=== PATIENT | female | born 1955 | race Caucasian/White ===

== ENCOUNTER 2017-05-24 09:18 | Emergency (ER) | payer BC ==
[2017-05-24 09:27] VITALS: BP 149/89
[2017-05-24] MEDS ORDERED: Gelfoam 12-7 ADSORBABL SPONGE* 1 EA SPONGE TOPICAL ONE (10:13)
[2017-05-24] MEDS ORDERED: Lidocaine 1% INJ* 10 MG/ML 30 ML SDV INJ ONE (10:22)
[2017-05-24] MEDS ORDERED: Lidocaine 2% PF * 5 ML VIAL INJ ONE (10:28)
--- NOTE | 2017-05-24 11:06 | UC ---
Selvin Dubon Angela, [facility] on 05/24/17 at 0935 . Laceration HPI - HPI Summary HPI Summary: In Room Note: This pt is a 61 y/o left-hand dominant female presenting to [facility] c/o a laceration on her right 5th finger s/p cut with a knife 2 days ago at around 8: 00 PM. She reports it started bleeding and wrapped it very tight to stop the bleeding. Pt notes it was ok for a couple of days with no bleeding. Today, pt notes she took off her wrap and her finger has not stopped bleeding since, she currently endorses pain. She denies any other injury, chest pain, SOB, fever. Pt is not anticoagulated. She reports her tetanus is UTD. MDs Note: Vital signs are stable, blood pressure is 149/89. Pt has no PMHx. Nurses Note: pt cut her rt 5th finger on a knif tuesday. pt states she wrapped it up and today it seems to not stop bleeding. pt denies use of anticoagulants. pt states her last tetnus was with in 5 years. - History Of Current Complaint Chief Complaint: UCLaceration Stated Complaint: HAND LACERATION Time Seen by Provider: 05/24/17 09:30 Hx Obtained From: Patient Laceration Location: Finger - right fifth finger Mechanism Of Injury: Sharp Trauma - with a knife - Allergies/Home Medications Allergies/Adverse Reactions: Allergies Allergy/AdvReac Type Severity Reaction Status Date / Time No Known Allergies Allergy Verified 05/24/17 09:27 Home Medications: Home Medications Phentermine HCl 37.5 mg PO 05/24/17 [History] PMH/Surg Hx/FS Hx/Imm Hx Previously Healthy: Yes Other Endocrine History: DENIES: Diabetes Other Cardiovascular History: DENIES: HTN Other History Of: Negative For: Anticoagulant Therapy - Surgical History Surgical History: None - Family History Known Family History: Negative: Cardiac Disease, Hypertension, Diabetes - Social History Occupation: Employed Full-time - Leadership education, executive coaching Alcohol Use: Weekly Substance Use Type: None Smoking Status (MU): Never Smoked Tobacco Review of Systems Constitutional: Negative Skin: Other - Laceration on right 5th finger Eyes: Negative ENT: Negative Respiratory: Negative Gastrointestinal: Negative Motor: Negative Neurovascular: Negative Musculoskeletal: Negative Neurological: Negative Psychological: Negative All Other Systems Reviewed And Are Negative: Yes Physical Exam Triage Information Reviewed: Yes Appearance: Well-Appearing, No Pain Distress, Well-Nourished Vital Signs: Initial Vital Signs Temp 97.5 F 05/24/17 09:24 Pulse 101 05/24/17 09:24 Resp 18 05/24/17 09:24 BP 149/89 05/24/17 09:24 Pulse Ox 100 05/24/17 09:24 Vital Signs Reviewed: Yes Eyes: Positive: Conjunctiva Clear ENT: Positive: Hearing grossly normal Neck: Positive: Supple, No Lymphadenopathy Respiratory: Positive: Chest non-tender, Lungs clear, Normal breath sounds, No respiratory distress Cardiovascular: Positive: RRR, No Murmur Musculoskeletal: Positive: Strength Intact Neurological: Positive: Alert Psychological: Positive: Age Appropriate Behavior Skin: Positive: Other - RUE: RIGHT 5TH FINGER SLIGHTLY MACERATED LACERATION ON THE VOLAR ASPECT OF THE DISTAL DIGIT. Negative: rashes Laceration Repair - Laceration Repair 1 Description: Linear - on right fifth finger Anesthesia Used: 2.0% Lido - without epinephrine, 3 CCs used to anesthetize successfully Irrigation With Pressure Irrigation Device: Yes Suture Of: Skin Suture Type: Nylon, Other - 250 surgicron loosely approximated the edges decreasing bleeding. Gel foam was then added and sawed on with the ends of one of the sutures. A pressure dressing was placed. The pt tolerated the procedure well. Laceration Course/Dx - Course/Dx Course Of Treatment: Medications have been included in the original chart and reviewed. Patient is Urgent/Emergent. BP elevated due to current condition w/o HTN in PMH. On exam, pt has a RIGHT 5TH FINGER SLIGHTLY MACERATED LACERATION ON THE VOLAR ASPECT OF THE DISTAL DIGIT. MDM: I explained to the patient the problem with a finger injury that is more than 8 to 12 hours old. I irrigated the wound out profusely and wrapped it down loosely to create some hemostasis. A laceration repair was performed and the pt tolerated the procedure well. Pt was told to restrict activities and call me in 2 days with any problems. At the beginning of the procedure, the wound was by 3 cm. At the end of the procedure the wound was by 1 cm, there was good hemostasis. - Differential Dx - Laceration/Wound Differental Diagnoses: Laceration, Other - continued bleeding. Provider Diagnoses: Right fifth finger distal laceration, continued bleeding after 48 hours. Loosely approximated and Gelfoam and pressure dressing to control bleeding. Patient re check in 48 hours. Will watch for signs of infection. Discharge - Discharge Plan Condition: Stable Disposition: HOME Patient Education Materials: Laceration (ED) Referrals: Alvina Merlos MD [Primary Care Provider] - Additional Instructions: Thank you for helping us improve patient care by filling out the [employer] Survey. WE DISCUSSED: Although your wound was 48 hours old, because of bleeding, it needed to be closed. I put in two sutures only and added some Gelfoam and a pressure dressing. If this bleeds, elevate it and put pressure on it for 10-15 minutes. Restrict activity, don't hit it, give it a chance to coagulate over the next 48 hours. Keep dressing on but watch for any signs of infection including increasing pain, redness, swelling, temperature. My suggestion is that you return here or see your doctor in two days to get the dressing removed and check on the wound. Go to ED if you have any problems before that. The documentation as recorded by the Selvin peng Angela accurately reflects the service I personally performed and the decisions made by me, Vimal Soares MD.
== END 2017-05-24 11:09 | disposition home or self-care (01) ==
LOC: UCEAST 09:18
DX: S61.216A Laceration without foreign body of right little finger without damage to nail, initial encounter (principal); W26.0XXA Contact with knife, initial encounter
CPT/HCPCS: 12001; 99211; A9270-GY; G0463; J2001

== ENCOUNTER 2017-05-26 07:03 | Emergency (ER) | payer BC ==
[2017-05-26 07:31] VITALS: BP 122/77
--- NOTE | 2017-05-26 10:37 | UC ---
Selvin Dubon Angela[facility] on 05/26/17 at 0715 . HPI Wound/Suture Re-check - HPI Summary HPI Summary: This pt is a 61 y/o left-hand dominant female presenting to [facility] for a wound recheck s/p laceration repair on May 24. Pt denies any complications, fever. In Room Note: This pt is a 61 y/o left-hand dominant female presenting to [facility] c/o a laceration on her right 5th finger s/p cut with a knife 2 days ago at around 8: 00 PM. She reports it started bleeding and wrapped it very tight to stop the bleeding. Pt notes it was ok for a couple of days with no bleeding. Today, pt notes she took off her wrap and her finger has not stopped bleeding since, she currently endorses pain. She denies any other injury, chest pain, SOB, fever. Pt is not anticoagulated. She reports her tetanus is UTD. MDs Note: Vital signs are stable, blood pressure is 122/77. Pt has no PMHx. Nurses Note: pt cut her rt 5th finger on a knif tuesday. pt states she wrapped it up and today it seems to not stop bleeding. pt denies use of anticoagulants. pt states her last tetnus was with in 5 years. - History Of Current Complaint Stated Complaint: WOUND RECHECK Time Seen by Provider: 05/26/17 07:07 Hx Obtained From: Patient Onset/Duration: Lasting Days Procedure Type: Laceration repair - Allergies/Home Medications Allergies/Adverse Reactions: Allergies Allergy/AdvReac Type Severity Reaction Status Date / Time No Known Allergies Allergy Verified 05/26/17 07:18 PMH/Surg Hx/FS Hx/Imm Hx Other Endocrine History: DENIES: Diabetes Other Cardiovascular History: DENIES: HTN Other History Of: Negative For: Anticoagulant Therapy - Surgical History Surgical History: None - Family History Known Family History: Negative: Cardiac Disease, Hypertension, Diabetes - Social History Alcohol Use: Weekly Substance Use Type: None Smoking Status (MU): Never Smoked Tobacco Review of Systems Constitutional: Negative Skin: Other - Sutures on the right fifth finger. Eyes: Negative ENT: Negative Respiratory: Negative Cardiovascular: Negative Gastrointestinal: Negative Motor: Negative Neurovascular: Negative Musculoskeletal: Negative Neurological: Negative Psychological: Negative All Other Systems Reviewed And Are Negative: Yes Physical Exam Triage Information Reviewed: Yes Appearance: Well-Appearing, No Pain Distress, Well-Nourished Vital Signs: Initial Vitals Temp Pulse Resp BP Pulse Ox 97.9 F 85 16 122/77 99 05/26/17 07:26 05/26/17 07:26 05/26/17 07:26 05/26/17 07:26 05/26/17 07:26 Vital Signs Reviewed: Yes Eyes: Positive: Conjunctiva Clear ENT: Positive: Hearing grossly normal Neck: Positive: Supple Respiratory: Positive: Chest non-tender, Lungs clear, Normal breath sounds, No respiratory distress Cardiovascular: Positive: RRR, No Murmur Musculoskeletal: Positive: Strength Intact, Other: - RUE: ON THE RIGHT FIFTH RIGHT FINGER THERE ARE NO SIGNS OR SYMPTOMS OF INFECTION. THERE IS FULL CIRCULATION MOTOR AND SENSORY. RIGHT FIFTH FINGER EXAM: DISTAL PHALANX IS NONTENDER. IT IS SLIGHTLY ERYTHEMATOUS ON THE VOLAR ASPECT AROUND THE WOUND EDGES AND NOT PROXIMAL TO THE DISTAL PHALANX. THERE IS NO ASCENDING CELLULITIS OR LYMPHANGITIS, NEURO SENRORY AND MOTOR IS WITHIN NORMAL LIMITS. THE 2 CM WOUND IS HELD TOGETHER BY 2 SUTURES AND OVER IT IS A INCH SECTION OF GELFOAM. THESE ELEMENTS WERE LEFT INTACT. THE WOUND WAS CLEANED AND ANTIBIOTIC OINTMENT WAS PLACED, AND 2 STERISTRIPS WERE ADDED TO REINFORCE THE WOUND. Neurological: Positive: Alert Psychological: Positive: Age Appropriate Behavior Skin: Negative: rashes Procedures - Procedure Summary Procedure Summary: The sutures were cleaned and the dressing was removed by the MD. Course/Dx - Course Course Of Treatment: Medications have been included in the original chart and reviewed. Patient is Urgent/Emergent. BP elevated due to current condition w/o HTN in PMH. RIGHT FIFTH FINGER EXAM: DISTAL PHALANX IS NONTENDER. IT IS SLIGHTLY ERYTHEMATOUS ON THE VOLAR ASPECT AROUND THE WOUND EDGES AND NOT PROXIMAL TO THE DISTAL PHALANX. THERE IS NO ASCENDING CELLULITIS OR LYMPHANGITIS , NEURO SENRORY AND MOTOR IS WITHIN NORMAL LIMITS. THE 2 CM WOUND IS HELD TOGETHER BY 2 SUTURES AND OVER IT IS A INCH SECTION OF GELFOAM. THESE ELEMENTS WERE LEFT INTACT. THE WOUND WAS CLEANED AND ANTIBIOTIC OINTMENT WAS PLACED, AND 2 STERISTRIPS WERE ADDED TO REINFORCE THE WOUND. The sutures were cleaned and the dressing was removed by the MD. The pt will have these sutures removed in 4 days. We discussed the need to watch for infection. She will clean the wound everyday with soap and water, use antibiotic ointment, and cover it with a bandage. - Differential Dx - Laceration/Wound Differential Diagnoses: Other - Healing laceration vs cellulitis Provider Diagnoses: Right fifth finger, distal phalanx, laceration, wound check : healing with good hemostasis and without infection. Discharge - Discharge Plan Condition: Stable Disposition: HOME Patient Education Materials: Care For Your Stitches (ED), Laceration (ED) Referrals: Alvina Merlos MD [Primary Care Provider] - Additional Instructions: WE DISCUSSED: Clean each morning with warm soap and water, gently. Pat dry. The steri strips will come off on their own. WATCH FOR INFECTION. Return in 4 days to have the sutures removed. Call us if you have any new symptoms including pain, swelling, redness, fever. The documentation as recorded by the Selvin peng Angela accurately reflects the service I personally performed and the decisions made by me, Vimal Soares MD.
== END 2017-05-26 07:40 | disposition home or self-care (01) ==
LOC: UCEAST 07:03
DX: S61.216D Laceration without foreign body of right little finger without damage to nail, subsequent encounter (principal); W26.0XXD Contact with knife, subsequent encounter
CPT/HCPCS: 99212; G0463

== ENCOUNTER 2017-05-30 13:24 | Emergency (ER) | payer BC ==
[2017-05-30 13:48] VITALS: BP 118/72
[2017-05-30] MEDS ORDERED: Benzoin Compound STICK TOPICAL ONE (13:49)
--- NOTE | 2017-05-30 13:57 | UC ---
HPI Wound/Suture Re-check - HPI Summary HPI Summary: Stitches in right pinky finger for 7 days here to get sutures removed--no evidence of infection, pain - History Of Current Complaint Chief Complaint: UCLaceration Stated Complaint: SUTURE REMOVAL Time Seen by Provider: 05/30/17 13:49 Hx Obtained From: Patient Onset/Duration: Sudden Onset, Lasting Days - 7, Still Present Severity: Mild Pain Intensity: 0 Pain Scale Used: 0-10 Numeric - Allergies/Home Medications Allergies/Adverse Reactions: Allergies Allergy/AdvReac Type Severity Reaction Status Date / Time No Known Allergies Allergy Verified 05/30/17 13:48 PMH/Surg Hx/FS Hx/Imm Hx Previously Healthy: Yes Other History Of: Negative For: Anticoagulant Therapy - Surgical History Surgical History: None - Family History Known Family History: Negative: Cardiac Disease, Hypertension, Diabetes - Social History Occupation: Employed Full-time Lives: With Family Alcohol Use: Weekly Substance Use Type: None Smoking Status (MU): Never Smoked Tobacco Review of Systems Constitutional: Negative Skin: Other - healing wound right pinky finger Eyes: Negative ENT: Negative Respiratory: Negative Cardiovascular: Negative Gastrointestinal: Negative Genitourinary: Negative Motor: Negative Neurovascular: Negative Musculoskeletal: Negative Neurological: Negative Psychological: Negative All Other Systems Reviewed And Are Negative: Yes Physical Exam Triage Information Reviewed: Yes Appearance: Well-Appearing, No Pain Distress, Well-Nourished Vital Signs: Initial Vital Signs Temp 97.4 F 05/30/17 13:43 Pulse 95 05/30/17 13:43 Resp 18 05/30/17 13:43 BP 118/72 05/30/17 13:43 Pulse Ox 100 05/30/17 13:43 Vital Signs Reviewed: Yes Eye Exam: Normal Eyes: Positive: Conjunctiva Clear ENT Exam: Normal ENT: Positive: Normal ENT inspection, Hearing grossly normal, TMs normal. Negative: Nasal congestion, Nasal drainage, Trismus, Muffled/hoarse voice Dental Exam: Normal Neck exam: Normal Neck: Positive: 1 Respiratory Exam: Normal Respiratory: Positive: Chest non-tender, No respiratory distress, No accessory muscle use Cardiovascular Exam: Normal Cardiovascular: Positive: RRR, Pulses Normal, Brisk Capillary Refill Musculoskeletal Exam: Normal Musculoskeletal: Positive: Strength Intact, ROM Intact, No Edema Neurological Exam: Normal Neurological: Positive: Alert, Muscle Tone Normal Psychological Exam: Normal Skin: Positive: Other - fair wound approximation stitches intact no s/s of infection Course/Dx - Course Course Of Treatment: keep wound clean and dry cover when apt to get bumped or dirty return in 4-5 days for suture removal - Differential Dx - Laceration/Wound Differential Diagnoses: Dehiscence, Healing Wound, Suture Removal Provider Diagnoses: Healing wound Discharge - Discharge Plan Condition: Stable Disposition: HOME Patient Education Materials: Care For Your Stitches (ED), Acute Wounds (ED) Referrals: Alvina Merlos MD [Primary Care Provider] - If Needed Additional Instructions: Return on TuesdayJune 04 for suture removal
== END 2017-05-30 14:04 | disposition home or self-care (01) ==
LOC: UCEAST 13:24
DX: S61.216D Laceration without foreign body of right little finger without damage to nail, subsequent encounter (principal); W45.8XXD Other foreign body or object entering through skin, subsequent encounter; Y92.9 Unspecified place or not applicable

== ENCOUNTER 2017-06-04 10:27 | Emergency (ER) | payer BC ==
[2017-06-04 10:37] VITALS: BP 116/79
--- NOTE | 2017-06-04 11:17 | UC ---
HPI Wound/Suture Re-check - HPI Summary HPI Summary: Patient presents to have stitiches removed from her right little finger that were placed on 05/24/17. She reports the laceration appears healed, denies any discharge, redness, warmth or increased pain. She states that the area still is slightly sensitive to touch but improving. Denies any numbness or tingling of the finger. - History Of Current Complaint Chief Complaint: UCSkin Stated Complaint: STITCHES REMOVAL Time Seen by Provider: 06/04/17 10:54 Hx Obtained From: Patient Severity: Mild - Allergies/Home Medications Allergies/Adverse Reactions: Allergies Allergy/AdvReac Type Severity Reaction Status Date / Time No Known Allergies Allergy Verified 05/30/17 13:48 PMH/Surg Hx/FS Hx/Imm Hx Previously Healthy: Yes Other History Of: Negative For: Anticoagulant Therapy - Surgical History Surgical History: None - Family History Known Family History: Negative: Cardiac Disease, Hypertension, Diabetes - Social History Occupation: Employed Full-time Lives: Alone Alcohol Use: Weekly Substance Use Type: None Smoking Status (MU): Never Smoked Tobacco Review of Systems Skin: Other - stitch removal All Other Systems Reviewed And Are Negative: Yes Physical Exam Triage Information Reviewed: Yes Appearance: Well-Appearing Vital Signs: Initial Vital Signs Temp 96.3 F 06/04/17 10:34 Pulse 94 06/04/17 10:34 Resp 18 06/04/17 10:34 BP 116/79 06/04/17 10:34 Pulse Ox 99 06/04/17 10:34 Vital Signs Reviewed: Yes Musculoskeletal Exam: Other - rom right little finger intact in all planes. Neurological Exam: Other - right little finger no decreased sensation to touch on examination. Skin: Positive: Other - right little finger two simple interrupted sutures removed. laceration well approximated. no surrounding induration noted. rom intact. neuro-vasc intact. Course/Dx - Course Course Of Treatment: Patient presents s/p laceration with sutures placed on 05/24, and two sutures were removed without incidence. The patient was given a finger splint for comfort, protection and suppport while the finger continues to heal. She was dischared home in stable condition. - Differential Dx - Laceration/Wound Differential Diagnoses: Suture Removal Provider Diagnoses: suture removal Discharge - Discharge Plan Condition: Stable Disposition: HOME Patient Education Materials: Stitches Removal (ED) Referrals: Alvina Merlos MD [Primary Care Provider] -
== END 2017-06-04 11:24 | disposition home or self-care (01) ==
LOC: UCEAST 10:27
DX: S61.216D Laceration without foreign body of right little finger without damage to nail, subsequent encounter (principal); W45.8XXD Other foreign body or object entering through skin, subsequent encounter; Y92.9 Unspecified place or not applicable; Y99.9 Unspecified external cause status